=== PATIENT | male | born 1960 | race American Indian/Alaskan Native ===

== ENCOUNTER 2018-09-01 15:43 | Outpatient (CLI) | payer OTHER ==
--- NOTE | 2018-09-01 21:13 | XRay Report ---
PROCEDURE: XR KNEE BILAT 1-2V TECHNIQUE: Frontal, lateral views of both knees HISTORY: DISABILITY EXAM, PAIN IN BILATERAL KNEE COMPARISONS: None FINDINGS: There is no evidence of fracture, subluxation, lytic or blastic change or periosteal reaction. The joint spaces appear to be maintained. The soft tissues are unremarkable. IMPRESSION: 1. No plain film evidence of bony or soft tissue abnormality. If further imaging is required, MRI may be helpful. This document is electronically signed by Maricarmen Gentile MD., September 01 2018 09:11:56 PM ET
== END 2018-09-01 15:44 | disposition home or self-care (01) ==
LOC: XRAY 15:43
PROVIDERS: ATTEND Internal Medicine
DX: Z02.71 Encounter for disability determination (principal); M25.561 Pain in right knee; M25.562 Pain in left knee; E78.00 Pure hypercholesterolemia, unspecified; I10 Essential (primary) hypertension